=== PATIENT | female | born 1960 | race Caucasian/White ===

== ENCOUNTER 2018-08-31 14:31 | Emergency (ER) | payer OTHER ==
[~2018-08-31] VITALS: Ht 167.6 cm; Wt 72.6 kg
[~2018-08-31 14:31] MED LIST: SIMVASTATIN20 MG PO
--- OUTSIDE RECORDS SUMMARY | 2018-08-31 14:34 | XMS REPORT | Continuity of Care Document ---
Author Author [facility] Interface Address Unknown Phone Unavailable Problems Problem Status Onset Date Classification Date Reported Comments Source Former smoker- quit 2010 - pk per day for 38 yrs Active 08/19/2015 Problem 08/24/2018 [facility] History of cervical cancer- s/p chemo /radiation - 2010 Active 08/19/2015 Problem 08/24/2018 [facility] HTN Active 08/19/2015 Problem 08/24/2018 [facility] Loss of weight- since jul 2014 Active 08/19/2015 Problem 08/24/2018 [facility] Bipolar 2 disorder- psychiatry on - " I go into rages - manic for 2-3 days then come down for 2-3 days then manic " every 2-3 days cycles bipolar Active 08/19/2015 Problem 08/24/2018 [facility] Hot flash, menopausal Active 08/01/2014 Problem 08/24/2018 [facility] Ankle pain, left Active 03/19/2013 Problem 08/24/2018 [facility] Narcotic addiction Active 12/18/2012 Problem 08/24/2018 [facility] Osteoarthritis of lumbar spine Active 08/13/2012 Problem 08/24/2018 [facility] Acute pancreatitis- past etoh abuse quit 2009 - alcohol 20 yrs binge drinking Active 06/02/2011 Problem 08/24/2018 [facility] COPD ;former smoker Active Problem 08/24/2018 [facility] GERD Active Problem 08/24/2018 [facility] Coronary artery disease s/p chemo had [place] Active Problem 08/24/2018 [facility] Degenerative disc disease Active Problem 08/24/2018 [facility] Medications Medication Details Route Status Patient Instructions Ordering Provider Order Date Source Hydroxyzine Hcl 50 Mg Tablet Take 1 tablet by mouth 3 times daily. Oral Active 08/22/2018 [facility] Tramadol 50 Mg Tablet Take 1 tablet by mouth every 8 hours as needed for Pain. Oral Active 08/01/2018 [facility] Dexilant 30 Mg Capsule, Delayed Release Take 1 capsule by mouth daily. Oral Active 07/12/2018 [facility] Clonidine Hcl 0.1 Mg Tablet Catapres 0.1 Mg Tablet Take 1 tablet by mouth daily For blood pressure. Oral Active 07/12/2018 [facility] Tramadol 50 Mg Tablet Take 1 tablet by mouth every 8 hours as needed for Pain. Oral No Longer Active 06/29/2018 [facility] Cyclobenzaprine 10 Mg Tablet Take 1 tablet by mouth 3 times daily as needed for Muscle Spasms. Oral Active 06/19/2018 [facility] Albuterol Sulfate Hfa 90 McG/Actuation Aerosol Inhaler Inhale 2 Puffs by mouth 4 times daily as needed for Wheezing. Inhalation Active 06/12/2018 [facility] Peg 3350-Electrolytes 236 Gram-22.74 Gram-6.74 Gram-5.86 Gram Solution Add lukewarm drinking water to the fill ricky (4 liters) and shake. Drink as directed by your doctor.. Active 06/05/2018 [facility] Methocarbamol 750 Mg Tablet Robaxin-750 750 Mg Tablet Take 1 tablet by mouth 4 times daily as needed for Pain. Oral No Longer Active 06/05/2018 [facility] Hydroxyzine Hcl 50 Mg Tablet Take 1 tablet by mouth 3 times daily. Oral No Longer Active 06/04/2018 [facility] Mirtazapine 15 Mg Tablet Remeron 15 Mg Tablet Take 1 tablet by mouth at bedtime nightly. Oral Active 06/04/2018 [facility] Tramadol 50 Mg Tablet Take 1 tablet by mouth every 8 hours as needed for Pain. Oral No Longer Active 05/29/2018 [facility] Tramadol 50 Mg Tablet Take 1 tablet by mouth every 8 hours as needed for Pain. Oral No Longer Active 05/03/2018 [facility] Tizanidine 4 Mg Tablet Zanaflex 4 Mg Tablet Take 1 tablet by mouth every 6 hours as needed for Muscle Spasms. Oral No Longer Active 04/03/2018 [facility] Tramadol 50 Mg Tablet Take 1 tablet by mouth every 8 hours as needed for Pain. Oral No Longer Active 04/03/2018 [facility] Hydroxyzine Hcl 50 Mg Tablet Take 1 tablet by mouth 3 times daily. Oral No Longer Active 03/12/2018 [facility] Trazodone 100 Mg Tablet Take 1 tablet by mouth at bedtime nightly. Oral No Longer Active 03/12/2018 [facility] lurasidone (LATUDA) 40 mg Tab TABLET Take 1 tablet by mouth daily Take with food. Oral No Longer Active 03/12/2018 [facility] Methocarbamol 750 Mg Tablet Robaxin-750 750 Mg Tablet Take 1 tablet by mouth 4 times daily as needed for up to 30 days for Pain. Oral Inactive 03/07/2018 [facility] Tizanidine 4 Mg Tablet Zanaflex 4 Mg Tablet Take 1 tablet by mouth every 6 hours as needed for Muscle Spasms. Oral No Longer Active 03/07/2018 [facility] Tramadol 50 Mg Tablet Take 1 tablet by mouth every 8 hours as needed for Pain. Oral No Longer Active 03/06/2018 [facility] Methocarbamol 750 Mg Tablet Robaxin-750 750 Mg Tablet Take 1 tablet by mouth 4 times daily as needed for up to 30 days for Pain. Oral Inactive 03/06/2018 [facility] Simvastatin 20 Mg Tablet Take 1 tablet by mouth at bedtime nightly For cholesterol. Oral Active 03/06/2018 [facility] Peg 3350-Electrolytes 236 Gram-22.74 Gram-6.74 Gram-5.86 Gram Solution Add lukewarm drinking water to the fill ricky (4 liters) and shake. Drink as directed by your doctor.. Active 03/06/2018 [facility] Methocarbamol 750 Mg Tablet Robaxin-750 750 Mg Tablet Take 1 tablet by mouth 4 times daily for 30 days. Oral No Longer Active 02/14/2018 [facility] Tramadol 50 Mg Tablet Take 1 tablet by mouth every 8 hours as needed for Pain. Oral No Longer Active 01/31/2018 [facility] Clonidine Hcl 0.1 Mg Tablet Catapres 0.1 Mg Tablet Take 1 tablet by mouth daily For blood pressure. Oral No Longer Active 01/01/2018 [facility] Baclofen 10 Mg Tablet Take 1 tablet by mouth 3 times daily as needed for Pain. Oral No Longer Active 01/01/2018 [facility] Fluticasone 50 McG/Actuation Nasal [place],Suspension Flonase 50 McG/Actuation Nasal [place],Suspension Use 1 [place] in each nostril daily. Active 01/01/2018 [facility] Dexilant 30 Mg Capsule, Delayed Release Take 1 capsule by mouth daily. Oral No Longer Active 01/01/2018 [facility] Tramadol 50 Mg Tablet Take 1 tablet by mouth every 8 hours as needed for Pain. Oral No Longer Active 01/01/2018 [facility] Ordgsjrv-Dwyvnokwr-Xspjfjndy 3.5 Mg/Ml-10,000 Unit/Ml-1 % Ear Solution Instill 3 Drops in right ear 4 times daily for 7 days. No Longer Active 01/01/2018 [facility] Sodium Chloride 0.65 % Nasal [place] Aerosol [place] Saline 0.65 % Nasal [place] Aerosol Use 2 Sprays in each nostril 4 times daily. Active 12/29/2017 [facility] Divalproex Er 500 Mg Tablet,Extended Release 24 Hr Depakote Er 500 Mg Tablet,Extended Release Take 2 tablets by mouth at bedtime nightly. Oral No Longer Active 12/18/2017 [facility] Hydroxyzine Hcl 50 Mg Tablet Take 1 tablet by mouth 3 times daily. Oral No Longer Active 12/18/2017 [facility] Trazodone 100 Mg Tablet Take 1 tablet by mouth at bedtime nightly. Oral No Longer Active 12/18/2017 [facility] Simvastatin 20 Mg Tablet Take 1 tablet by mouth at bedtime nightly For cholesterol. Oral No Longer Active 10/30/2017 [facility] Tramadol 50 Mg Tablet Take 1 tablet by mouth every 8 hours as needed for Pain. Oral No Longer Active 10/30/2017 [facility] Baclofen 10 Mg Tablet Take 1 tablet by mouth 3 times daily as needed for Pain. Oral No Longer Active 10/12/2017 [facility] Divalproex Er 500 Mg Tablet,Extended Release 24 Hr Depakote Er 500 Mg Tablet,Extended Release Take 2 tablets by mouth at bedtime nightly. Oral No Longer Active 10/02/2017 [facility] Hydroxyzine Hcl 50 Mg Tablet Take 1 tablet by mouth 3 times daily. Oral No Longer Active 10/02/2017 [facility] Trazodone 100 Mg Tablet Take 1 tablet by mouth at bedtime nightly. Oral No Longer Active 10/02/2017 [facility] Dexilant 30 Mg Capsule, Delayed Release Take 1 capsule by mouth daily. Oral No Longer Active 09/29/2017 [facility] Dexilant 60 Mg Capsule, Delayed Release Take 1 capsule by mouth daily. Oral No Longer Active 09/08/2017 [facility] Dexilant 60 Mg Capsule, Delayed Release Take 1 capsule by mouth daily. Oral Inactive 09/07/2017 [facility] Fluticasone 50 McG/Actuation Nasal [place],Suspension Flonase 50 McG/Actuation Nasal [place],Suspension Use 1 [place] in each nostril daily. No Longer Active 09/07/2017 [facility] Clonidine Hcl 0.1 Mg Tablet Catapres 0.1 Mg Tablet Take 1 tablet by mouth daily For blood pressure. Oral No Longer Active 09/07/2017 [facility] Tramadol 50 Mg Tablet Take 1 tablet by mouth every 8 hours as needed for Pain. Oral No Longer Active 09/07/2017 [facility] Chlorzoxazone 250 Mg Tablet Take 1 tablet by mouth 3 times daily as needed for Muscle Spasms. Oral No Longer Active 09/07/2017 [facility] Tramadol 50 Mg Tablet Take 1 tablet by mouth every 8 hours as needed for Pain. Oral No Longer Active 08/22/2017 [facility] Divalproex Er 500 Mg Tablet,Extended Release 24 Hr Depakote Er 500 Mg Tablet,Extended Release Take 2 tablets by mouth at bedtime nightly. Oral No Longer Active 07/10/2017 [facility] Hydroxyzine Hcl 50 Mg Tablet Take 1 tablet by mouth 3 times daily. Oral No Longer Active 07/10/2017 [facility] Eszopiclone 2 Mg Tablet Lunesta 2 Mg Tablet Take 1 tablet by mouth at bedtime nightly. Oral No Longer Active 07/10/2017 [facility] Baclofen 10 Mg Tablet Take 1 tablet by mouth 3 times daily as needed for Pain. Oral No Longer Active 07/07/2017 [facility] Loperamide 2 Mg Capsule Anti-Diarrheal (Loperamide) 2 Mg Capsule Take 1 capsule by mouth 4 times daily as needed for Diarrhea. Oral Active 06/14/2017 [facility] Clonidine Hcl 0.1 Mg Tablet Catapres 0.1 Mg Tablet Take 1 tablet by mouth daily For blood pressure. Oral No Longer Active 05/09/2017 [facility] Loratadine 10 Mg Tablet Claritin 10 Mg Tablet Take 1 tablet by mouth daily. Oral No Longer Active 04/13/2017 [facility] Nebulizer And Compressor 1 Device by [facility].(Non-Drug; Combo Route) route 4 times daily. Active 01/26/2017 [facility] Ipratropium [place] 0.02 % Solution For Inhalation Inhale 2.5 mL by mouth 4 times daily. Inhalation Active 01/26/2017 [facility] Albuterol Sulfate 2.5 Mg/3 Ml (0.083 %) Solution For Nebulization Inhale 3 mL by mouth every 4 hours as needed for Wheezing or Shortness of Breath. Inhalation Active 01/26/2017 [facility] Advair Diskus 500 McG-50 McG/Dose Powder For Inhalation Inhale 1 Puff by mouth 2 times daily. Inhalation Active 01/26/2017 [facility] Spiriva With Handihaler 18 McG And Inhalation Capsules Inhale 1 capsule by mouth daily. Inhalation Active 01/26/2017 [facility] Dexilant 60 Mg Capsule, Delayed Release Take 1 capsule by mouth daily. Oral No Longer Active 01/26/2017 [facility] Omeprazole 40 Mg Capsule,Delayed Release Take 1 capsule by mouth daily. Oral No Longer Active 01/26/2017 [facility] Peg 3350-Electrolytes 236 Gram-22.74 Gram-6.74 Gram-5.86 Gram Solution Add lukewarm drinking water to the fill ricky (4 liters) and shake. Drink as directed by your doctor.. No Longer Active 11/21/2016 [facility] Dexilant 30 Mg Capsule, Delayed Release Take 1 capsule by mouth daily. Oral No Longer Active 10/18/2016 [facility] Simvastatin 20 Mg Tablet Take 1 tablet by mouth at bedtime nightly For cholesterol. Oral No Longer Active 10/18/2016 [facility] Albuterol Sulfate Hfa 90 McG/Actuation Aerosol Inhaler Inhale 2 Puffs by mouth 4 times daily as needed for Wheezing. Inhalation No Longer Active 10/18/2016 [facility] Allergies, Adverse Reactions, Alerts Substance Category Reaction Severity Reaction type Status Date Reported Comments Source Penicillins Hives Propensity to adverse reactions to drug Active 01/20/2009 [facility] Penicillin G Propensity to adverse reactions to drug Active 11/13/2010 [facility] Aspirin Other Propensity to adverse reactions to drug Active 01/07/2013 [facility] Ibuprofen Other Propensity to adverse reactions to drug Active 01/07/2013 [facility] Immunizations Immunization Date Given Site Status Last Updated Comments Source Influenza Vaccine, Seasonal, Injectable 09/07/[address] [facility] Influenza Vaccine 08/17/[address] [facility] Pcv-13 Pneumococcal Conjugate 11/03/[address] [facility] Influenza Vaccine 07/09/[address] [facility] Influenza Vaccine 08/14/[address] [facility] Influenza Vaccine 07/16/[address] [facility] Tdap Tetanus, diphtheria, acellular pertussis Vaccine 03/11/[address] [facility] Influenza Vaccine 08/27/[address] [facility] PPV 23 Pneumococcal Polysaccaride 06/02/[address] [facility] Results Order Name Results Value Reference Range Date Interpretation Comments Source MAMMOGRAM BILAT SCREEN DIGITAL <p>IMPRESSION: BENIGN</p><p>There is no mammographic evidence of malignancy. A 1 year </p><p>screening mammogram is recommended.</p><p>This document has been electronically signed.</p><p> </p><p>Susan Mccloud M.D.</p><p>aar/penrad:03/20/2018 13:39:20</p><p> </p><p>Social Services: Jb Lazaro Sr. Organic Chemistry Professor, </p><p>[facility]</p><p>letter sent: Mammography Normal</p><p>Mammogram BI-RADS: 2 Benign G0202 Z85.3</p> IMPRESSION: BENIGN There is no mammographic evidence of malignancy. A 1 year screening mammogram is recommended. This document has been electronically signed. Susan Mccloud M.D. aar/penrad:03/20/2018 13:39:20 Social Services: Jb Lazaro Sr. Organic Chemistry Professor, [facility] letter sent: Mammography Normal Mammogram BI-RADS: 2 Benign G0202 Z85.3 03/20/2018 [facility] MAMMOGRAM BILAT SCREEN DIGITAL <p> </p><p>#[id number] - MAMMOGRAM BILAT SCREEN DIGITAL</p><p>BILATERAL DIGITAL SCREENING MAMMOGRAM WITH CAD: 03/20/2018</p><p>CLINICAL: Screening for malignancy.</p><p> </p><p>Comparison is made to exams dated:04/07/2017 [facility] </p><p>Center, 03/29/2016 [facility], 01/30/2015, </p><p>12/10/2013, and 10/22/2012 [facility].</p><p>There are scattered fibroglandular elements in both breasts that </p><p>could obscure a lesion on mammography.</p><p>Current study was also evaluated with a Computer Aided Detection </p><p>(CAD) system.</p><p>There is a benign intramammary node in the left breast.</p><p>No significant masses, calcifications, or other findings are seen </p><p>in either breast.</p><p>There has been no significant interval change.</p><p> </p> #[id number] - MAMMOGRAM BILAT SCREEN DIGITAL BILATERAL DIGITAL SCREENING MAMMOGRAM WITH CAD: 03/20/2018 CLINICAL: Screening for malignancy. Comparison is made to exams dated:04/07/2017 [facility], 03/29/2016 [facility] [place], 01/30/2015, 12/10/2013, and 10/22/2012 [facility]. There are scattered fibroglandular elements in both breasts that could obscure a lesion on mammography. Current study was also evaluated with a Computer Aided Detection (CAD) system. There is a benign intramammary node in the left breast. No significant masses, calcifications, or other findings are seen in either breast. There has been no significant interval change. 03/20/2018 [facility] MAMMOGRAM BILAT SCREEN DIGITAL <p styleCode="header">Interface, Rad/Mammog In - 03/20/2018 4:02 PM CDT</p><p>
<span>#[id number] - MAMMOGRAM BILAT SCREEN DIGITAL</span>
<span>BILATERAL DIGITAL SCREENING MAMMOGRAM WITH CAD: 03/20/2018</span>
<span>CLINICAL: Screening for malignancy. </span>

<span>Comparison is made to exams dated: 04/07/2017 [facility] </span>
<span>Center, 03/29/2016 [facility] [place], 01/30/2015, </span>
<span>12/10/2013, and 10/22/2012 [facility]. </span>
<span>There are scattered fibroglandular elements in both breasts that </span>
<span>could obscure a lesion on mammography. </span>
<span>Current study was also evaluated with a Computer Aided Detection </span>
<span>(CAD) system. </span>
<span>There is a benign intramammary node in the left breast. </span>
<span>No significant masses, calcifications, or other findings are seen </span>
<span>in either breast. </span>
<span>There has been no significant interval change.</span>

<span>IMPRESSION</span>
<span>IMPRESSION: BENIGN</s tellez>
<span>There is no mammographic evidence of malignancy. A 1 year </span>
<span>screening mammogram is recommended. </span>
<span>This document has been electronically signed.</span>

<span>Susan Mccloud M.D. </span>
<span>aar/penrad:03/20/2018 13:39:20 </span><b r/>
<span>Social Services: Jb Lazaro Sr. Organic Chemistry Professor, </span>
<span>[facility]</span>
<span>letter sent: M ammography Normal </span>
<span>Mammogram BI-RADS: 2 Benign G0202 Z85.3</span></p> Interface, Rad/Mammog In - 03/20/2018 4:02 PM CDT #[id number] - MAMMOGRAM BILAT SCREEN DIGITAL BILATERAL DIGITAL SCREENING MAMMOGRAM WITH CAD: 03/20/2018 CLINICAL: Screening for malignancy. Comparison is made to exams dated: 04/07/2017 [facility], 03/29/2016 [facility], 01/30/2015, 12/10/2013, and 10/22/2012 [facility]. There are scattered fibroglandular elements in both breasts that could obscure a lesion on mammography. Current study was also evaluated with a Computer Aided Detection (CAD) system. There is a benign intramammary node in the left breast. No significant masses, calcifications, or other findings are seen in either breast. There has been no significant interval change. IMPRESSION IMPRESSION: BENIGN There is no mammographic evidence of malignancy. A 1 year screening mammogram is recommended. This document has been electronically signed. Susan Mccloud M.D. aar/penrad:03/20/2018 13:39:20 Social Services: Jb Lazaro Sr. Organic Chemistry Professor, [facility] letter sent: Mammography Normal Mammogram BI-RADS: 2 Benign G0202 Z85.3 03/20/2018 [facility] HEPATITIS PANEL HCV IgG Negative NEG 03/03/2018 [facility] HEPATITIS PANEL HBsAg Negative NEG 03/03/2018 [facility] HEPATITIS PANEL HAV, IgM Negative NEG 03/03/2018 [facility] HEPATITIS PANEL HBcAb, IgM Negative NEG 03/03/2018 [facility] HIV-1/HIV-2 ROUTINE SCREENING HIV-1/HIV-2 Negative NEG 03/03/2018 [facility] ELECTROLYTES Sodium 145 mmol/L 136 - 145 03/02/2018 [facility] ELECTROLYTES Potassium 4.2 mmol/L 3.5 - 5.1 03/02/2018 [facility] ELECTROLYTES Chloride 107 mmol/L 98 - 107 03/02/2018 [facility] ELECTROLYTES CO2 28 mmol/L 21 - 31 03/02/2018 [facility] ELECTROLYTES Anion Gap 10 03/02/2018 [facility] GLUCOSE Glucose 98 mg/dL 70 - 110 03/02/2018 [facility] LIPID PROFILE Cholesterol 261 mg/dL 03/02/2018 REFERENCE RANGE: Desirable: <200 mg/dL Borderline: 200-240 mg/dL High Risk: >240 mg/dL [facility] LIPID PROFILE Triglyceride 190 mg/dL <150 03/02/2018 REFERENCE RANGE: Normal: <150 mg/dL Borderline High: 150-199 mg/dL High: 200-499 mg/dL Very High: >ge=288 mg/dL [facility] LIPID PROFILE HDL 51 mg/dL 03/02/2018 Increased CHD risk: <40 mg/dL Decreased CHD risk: >60 mg/dL [facility] LIPID PROFILE LDL 172 mg/dL 03/02/2018 REFERENCE RANGE: Optimal: <100 mg/dL Near Optimal: 100-129 mg/dL Borderline High: 130-159 mg/dL High: 160-189 mg/dL Very High: >sz=437 mg/dL [facility] LIPID PROFILE Lab Interpretation Abnormal 03/02/2018 [facility] LIVER PROFILE T Protein 6.5 g/dL 6 - 8.3 03/02/2018 [facility] LIVER PROFILE Albumin 4.5 g/dL 3.7 - 5.3 03/02/2018 [facility] LIVER PROFILE T Bilirubin 0.4 mg/dL 0.2 - 1.2 03/02/2018 [facility] LIVER PROFILE Alk Phos 60 U/L 34 - 104 03/02/2018 [facility] LIVER PROFILE AST 11 U/L 13 - 39 03/02/2018 [facility] LIVER PROFILE ALT 10 U/L 7 - 52 03/02/2018 [facility] LIVER PROFILE D Bilirubin 0.1 mg/dL 0 - 0.2 03/02/2018 [facility] LIVER PROFILE Lab Interpretation Abnormal 03/02/2018 [facility] UREA NITROGEN/CREA Urea Nitrogen 12 mg/dL 7 - 25 03/02/2018 [facility] UREA NITROGEN/CREA Creatinine 0.70 mg/dL 0.6 - 1.2 03/02/2018 [facility] UREA NITROGEN/CREA GFR, Estimated >60 mL/min/1.73 m2 03/02/2018 [facility] UREA NITROGEN/CREA GFR, Estim, Afr-Am >60 mL/min/1.73 m2 03/02/2018 [facility] CBC/DIFF WBC 5.2 K/uL 4.5 - 11 03/02/2018 [facility] CBC/DIFF RBC 4.40 4.20 - 5.40 03/02/2018 [facility] CBC/DIFF Hemoglobin 13.4 g/dL 12 - 16 03/02/2018 [facility] CBC/DIFF Hematocrit 39.6 % 37 - 47 03/02/2018 [facility] CBC/DIFF MCV 90 fL 82 - 92 03/02/2018 [facility] CBC/DIFF MCH 30.5 pg 27 - 32 03/02/2018 [facility] CBC/DIFF MCHC 33.8 g/dL 32 - 36 03/02/2018 [facility] CBC/DIFF RDW 42.5 fL 36.4 - 46.3 03/02/2018 [facility] CBC/DIFF Platelet 329 K/uL 150 - 400 03/02/2018 [facility] CBC/DIFF Mean Platelet Volume 9.6 fL 9.4 - 12.4 03/02/2018 [facility] CBC/DIFF Percent NRBC 0.0 03/02/2018 [facility] CBC/DIFF Absolute NRBC 0.00 03/02/2018 [facility] CBC/DIFF Neutrophil 63.7 % 34 - 70 03/02/2018 [facility] CBC/DIFF Lymphocyte 27.9 % 20 - 50 03/02/2018 [facility] CBC/DIFF Monocyte 6.5 % 5 - 12 03/02/2018 [facility] CBC/DIFF Eosinophil 1.1 % 0.7 - 5 03/02/2018 [facility] CBC/DIFF Basophil 0.4 % 0.1 - 1.2 03/02/2018 [facility] CBC/DIFF Pct Immat Gran 0.4 0.0 - 0.5 03/02/2018 [facility] CBC/DIFF Neutrophil, Abs 3.33 K/uL 1.56 - 6.13 03/02/2018 [facility] CBC/DIFF Lymphocyte, Abs 1.46 K/uL 1.18 - 3.74 03/02/2018 [facility] CBC/DIFF Monocyte, Abs 0.34 K/uL 0.24 - 0.36 03/02/2018 [facility] CBC/DIFF Eosinophil, Abs 0.06 K/uL 0.04 - 0.36 03/02/2018 [facility] CBC/DIFF Basophil, Abs 0.02 K/uL 0.01 - 0.08 03/02/2018 [facility] CBC/DIFF Absol Immat Gran 0.02 K/uL 0 - 0.03 03/02/2018 [facility] VALPROIC ACID Valproic Acid 57.7 ug/mL 50 - 100 12/19/2017 Test performed on [id number] using EMIT Immunoassay [facility] CYTOLOGY [facility] Cytology (note) Name ANA NELSON Date of 1960 Hospital Number [id number] [facility] [employer] Oncology CYTOPATHOLOGY Collected:11/06/2017 00:00 Received: 11/07/2017 11:02 FINAL DIAGNOSIS Cervicovaginal (liquid-based preparation): Satisfactory for evaluation Negative for intraepithelial lesion or malignancy Infection Shift in [place] suggestive of bacterial vaginosis Electronically Signed Out By SILVA Singh (ASCP) Clinical History Date of Last Menstrual Period: 2010 Menstrual History: Pregnancies: A0 Cancer History: Previous Cancer: Cervical IB2 Specimen Received: One ThinPrep Vial Educational Note: The pap smear/test is a screening test for cervical cancer.As with screening procedures, both false negative and false positive results may occur.Hence, the results should be interpreted in the context of patient's history and current clinical information. The slide has been analyzed by the automated ThinPrep Imaging System, [employer], [place], [place]. 11/08/2017 [facility] HPV HIGH-RISK HPV High Risk Negative NEG 11/07/2017 The APTIMA HPV Assay is an in vitro nucleic acid amplification test for the qualitative detection of E6/E7 viral messenger RNA (mRNA) from 14 high-risk types of human papillomavirus (HPV) in cervical specimens. The high-risk HPV types detected by the assay include: 16,18,31,33,35,39,45,51,52,56,58,59,66, and 68. [facility] HPV HIGH-RISK CoPath Spec Number [id number] 11/07/2017 [facility] URINE DRUG SCREEN Amphetamine Negative NEG 09/08/2017 Calibrated Standard: D-Methamphetamine Positive if urine level >qf=4694 ng/mL [facility] URINE DRUG SCREEN Barbiturate Negative NEG 09/08/2017 Calibrated Standard: Secobarbital Positive if urine level is >us=798 ng/mL [facility] URINE DRUG SCREEN Benzodiazepine Negative NEG 09/08/2017 Calibrated Standard: Lormethazepam Positive if urine level is >jp=557 ng/mL [facility] URINE DRUG SCREEN Cannabinoid Positive NEG 09/08/2017 Calibrated Standard: 11 nor-delta(9)-THC carboxylic a Positive if urine level >or=50 [facility] URINE DRUG SCREEN Cocaine Negative NEG 09/08/2017 Calibrated Standard: Benzoylecgonine Positive if urine level >oi=668 [facility] URINE DRUG SCREEN Opiate, Ur Negative NEG 09/08/2017 Calibrated Standard: Morphine Positive if urine level >jr=656 [facility] URINE DRUG SCREEN PCP Negative NEG 09/08/2017 Calibrated Standard: Phencyclidine Positive if urine level >or=25 Urine Toxicology Screen results are to be used only for Medical purposes. [facility] URINE DRUG SCREEN Lab Interpretation Abnormal 09/08/2017 [facility] Vital Signs Vital Sign Value Date Comments Source Systolic (mm Hg) 116 06/05/2018 [facility] Diastolic (mm Hg) 69 06/05/2018 [facility] Heart Rate 65 06/05/2018 [facility] Temperature Oral (F) 37 Stephanie 06/05/2018 [facility] Respitory Rate 18 06/05/2018 [facility] Height 167.6 cm 06/05/2018 [facility] Weight 75.841 06/05/2018 [facility] BMI Calculated 26.99 06/05/2018 [facility] Encounters Location Location Details Encounter Type Encounter Number Reason For Visit Attending Provider ADM Date DC Date Status Source Pharmacy [facility] Visit [id number] 08/25/2017 [facility] Visit [id number] 08/30/2017 [facility] [id number] 08/30/2017 [facility] Refill [id number] Gastroesophageal reflux disease with esophagitis Onelia Miller DO 09/07/2017 [facility] Visit [id number] 09/07/2017 [facility] Office Visit [id number] Needs flu shot Essential hypertension, benign Allergic rhinitis, unspecified chronicity, unspecified seasonality, unspecified trigger Gastroesophageal reflux disease with esophagitis Foraminal stenosis of lumbar region Foraminal stenosis of cervical region Cervical stenosis of spinal canal Chronic midline low back pain with sciatica, sciatica laterality unspecified Ziyad Burns MD 09/07/2017 09/07/2017 [facility] Visit [id number] 09/08/2017 [facility] Visit [id number] 09/20/2017 [facility] Visit [id number] 09/22/2017 [facility] Visit [id number] 09/27/2017 [facility] Ref[facility] [id number] Abdominal pain, epigastric Ziyad Burns MD 09/28/2017 [facility] [id number] 09/28/2017 [facility] Visit [id number] 09/29/2017 [facility] Visit [id number] 10/02/2017 [facility] Visit [id number] Mood disorder Bipolar 2 disorder Oliver Nascimento MD 10/02/2017 10/02/2017 [facility] [id number] 10/03/2017 [facility] Visit [id number] 10/06/2017 [facility] [id number] 10/06/2017 [facility] [id number] 10/06/2017 [facility] Orders Only [id number] Osteoarthritis of lumbar spine, unspecified spinal osteoarthritis complication status Ziyad Burns MD 10/12/2017 [facility] Visit [id number] 10/13/2017 [facility] [id number] 10/16/2017 [facility] [id number] 10/23/2017 [facility] Visit [id number] 10/30/2017 [facility] Visit [id number] Cervical stenosis of spinal canal Foraminal stenosis of cervical region Foraminal stenosis of lumbar region Benign tumor of nares Hyperlipidemia, unspecified hyperlipidemia type Ziyad Burns MD 10/30/2017 10/30/2017 [facility] [id number] 11/06/2017 [facility] [employer] [facility] Office Visit [id number] Malignant neoplasm of cervix, unspecified site History of cervical cancer Toney Liu MD 11/06/2017 11/06/2017 [facility] [id number] 11/08/2017 [facility] Visit [id number] 11/10/2017 [facility] Behavioral Health[facility] Visit [id number] Mood disorder in conditions classified elsewhere Oliver Nascimento MD 11/16/2017 11/16/2017 [facility] Visit [id number] 11/22/2017 [facility] Visit [id number] 11/22/2017 [facility] Visit [id number] 11/27/2017 [facility]acy Visit [id number] 12/04/2017 [facility] [id number] 12/04/2017 [facility] Visit [id number] 12/08/2017 [facility] Visit [id number] Mood disorder Bipolar 2 disorder Oliver Nascimento MD 12/18/2017 12/18/2017 [facility] [id number] 12/19/2017 [facility] Office Visit [id number] Sore in nostril Salome Orona MD 12/29/2017 12/29/2017 [facility] [id number] 01/01/2018 [facility] Visit [id number] Other emphysema Gastroesophageal reflux disease without esophagitis Essential hypertension Essential hypertension, benign Osteoarthritis of lumbar spine, unspecified spinal osteoarthritis complication status Abdominal pain, epigastric Foraminal stenosis of lumbar region Allergic rhinitis, unspecified seasonality, unspecified trigger Acute otitis externa of right ear, unspecified type Hyperlipidemia, unspecified hyperlipidemia type Bipolar affective disorder, currently depressed, mild Ziyad Burns MD 01/01/2018 01/01/2018 [facility] [id number] 01/02/2018 [facility] Visit [id number] 01/12/2018 [facility]acy Visit [id number] 01/12/2018 [facility] [id number] 01/24/2018 [facility] Visit [id number] 01/26/2018 [facility]acy Visit [id number] 01/29/2018 [facility] [id number] 01/29/2018 [facility] Refill [id number] Foraminal stenosis of lumbar region Ziyad Burns MD 01/29/2018 [facility] Visit [id number] 02/01/2018 [facility] Visit [id number] 02/13/2018 [facility] [id number] 02/14/2018 [facility] Office Visit [id number] Chronic neck pain Bola Soler MD 02/14/2018 02/14/2018 [facility] [id number] 02/16/2018 [facility]acy Visit [id number] 02/28/2018 [facility] [id number] 02/28/2018 [facility] Refill [id number] Foraminal stenosis of lumbar region Ziyad Burns MD 02/28/2018 [facility] [id number] 03/02/2018 [facility] Refill [id number] Chronic neck pain Ziyad Burns MD 03/06/2018 [facility] [id number] 03/06/2018 [facility] Visit [id number] Chronic neck pain Essential hypertension Other emphysema Gastroesophageal reflux disease without esophagitis Allergic rhinitis, unspecified seasonality, unspecified trigger Hyperlipidemia, unspecified hyperlipidemia type Preventative health care Polyp of colon, unspecified part of colon, unspecified type Ziyad Burns MD 03/06/2018 03/06/2018 [facility] [id number] 03/07/2018 [facility] Orders Only [id number] Chronic neck pain Ziyad Burns MD 03/07/2018 [facility]acy Visit [id number] 03/08/2018 [facility] [id number] 03/08/2018 [facility] [id number] 03/12/2018 [facility] [id number] 03/12/2018 [facility] Visit [id number] Mood disorder Bipolar 2 disorder Oliver Nascimento MD 03/12/2018 03/12/2018 [facility] [id number] 03/13/2018 [facility] [id number] 03/14/2018 [facility] [id number] 03/14/2018 [facility] [id number] 03/15/2018 [facility] [id number] 03/16/2018 [facility] Ancillary Procedure [id number] Ziyad Burns MD 03/20/2018 03/20/2018 [facility] [id number] 04/03/2018 [facility] Refill [id number] Chronic neck pain Foraminal stenosis of lumbar region Ziyad Burns MD 04/03/2018 [facility] [id number] 04/06/2018 [facility]acy Visit [id number] 04/10/2018 [facility] [id number] 04/10/2018 [facility] [id number] 04/17/2018 [facility] Refill [id number] Foraminal stenosis of lumbar region Ziyad Burns MD 05/03/2018 [facility] [id number] 05/04/2018 [facility] [id number] 05/07/2018 [facility] [id number] 05/08/2018 [facility] [id number] 05/14/2018 [facility] [id number] 05/17/2018 [facility] Refill [id number] Foraminal stenosis of lumbar region Ziyad Burns MD 05/25/2018 [facility] [id number] 05/25/2018 [facility] Visit [id number] 05/29/2018 [facility] Visit [id number] 05/30/2018 [facility] [id number] 06/01/2018 [facility] [id number] 06/04/2018 [facility] Visit [id number] Mood disorder TRAN (generalized anxiety disorder) Current severe episode of major depressive disorder without psychotic features without prior episode Routine lab draw Oliver Nascimento MD 06/04/2018 06/04/2018 [facility] [id number] 06/05/2018 [facility] Office Visit [id number] Dysphagia, unspecified type Polyp of colon, unspecified part of colon, unspecified type Other emphysema Gastroesophageal reflux disease without esophagitis Coronary artery disease due to lipid rich plaque Neck pain Chronic midline low back pain without sciatica Ziyad Burns MD 06/05/2018 06/05/2018 [facility] Refill [id number] Other emphysema Ziyad Burns MD 06/11/2018 [facility] [id number] 06/11/2018 [facility] [id number] 06/12/2018 [facility] [id number] 06/15/2018 [facility] Telephone [id number] Ama Poon RN 06/18/2018 [facility] [id number] 06/19/2018 [facility] Orders Only [id number] Neck pain Chronic midline low back pain without sciatica Ziyad Burns MD 06/19/2018 [facility] Refill [id number] Foraminal stenosis of lumbar region Ziyad Burns MD 06/28/2018 [facility] [id number] 06/29/2018 [facility] [id number] 07/03/2018 [facility] Refill [id number] Abdominal pain, epigastric Essential hypertension, benign Ziyad Burns MD 07/09/2018 [facility] [id number] 07/12/2018 [facility] [id number] 07/20/2018 [facility] Visit [id number] Mood disorder in conditions classified elsewhere Grief Jenni Lopez 07/20/2018 07/20/2018 [facility] Visit [id number] 08/01/2018 [facility] Refill [id number] Foraminal stenosis of lumbar region Ziyad Burns MD 08/01/2018 [facility]acy Visit [id number] 08/02/2018 [facility] [id number] 08/02/2018 [facility] Visit [id number] 08/03/2018 [facility] Visit [id number] 08/21/2018 [facility] [id number] Mood disorder Oliver Nascimento MD 08/22/2018 [facility] Refill [id number] Mood disorder Porfirio Gomez MD 08/22/2018 [facility] [id number] 08/22/2018 [facility] Ref[facility] [id number] Mood disorder Bipolar 2 disorder Oliver Nascimento MD 08/24/2018 [facility] [id number] 08/24/2018 [facility] Procedures Procedure Code Date Perfomer Comments Source MAMMOGRAM BILAT SCREEN DIGITAL G0202 03/20/2018 [facility] ELECTROLYTES 48329 03/02/2018 [facility] CBC/DIFF 77788 03/02/2018 [facility] GLUCOSE 83915 03/02/2018 [facility] LIPID PROFILE 44923 03/02/2018 [facility] UREA NITROGEN/CREA 58768 03/02/2018 [facility] LIVER PROFILE [id number] 03/02/2018 [facility] HIV-1/HIV-2 ROUTINE SCREENING 59008 03/02/2018 [facility] HEPATITIS PANEL 22779 03/02/2018 [facility] VALPROIC ACID 23324 12/18/2017 [facility] HPV HIGH-RISK 49591 11/06/2017 [facility] CYTOLOGY 81637 11/06/2017 [facility] URINE DRUG SCREEN 47117 09/07/[address] [facility]
--- OUTSIDE RECORDS SUMMARY | 2018-08-31 14:35 | XMS REPORT ---
Author [facility] Address Unknown Phone Unavailable Care Team Providers Care Online Advertising Manager Name Role Phone Unavailable Unavailable Problems This patient has no known problems. Allergies, Adverse Reactions, Alerts This patient has no known allergies or adverse reactions. Medications This patient has no known medications. Encounters Start Date/Time End Date/Time Encounter Type Admission Type Attending [facility] Facility Care Department Encounter ID 2018-11-19 00:00:00 2018-11-19 00:00:00 Outpatient [facility] [id number] 2018-10-10 00:00:00 2018-10-10 00:00:00 Outpatient [facility] [id number] 2018-09-03 00:00:00 2018-09-03 00:00:00 Outpatient [facility] [id number] 2018-08-27 13:11:15 2018-08-27 13:11:15 Outpatient [facility] [id number] 2018-08-24 15:25:36 2018-08-24 15:25:36 Outpatient [facility] [id number] 2018-08-22 00:00:00 2018-08-22 00:00:00 Outpatient [facility] [id number] 2018-08-22 00:00:00 2018-08-22 00:00:00 Outpatient [facility] [id number] 2018-08-01 00:00:00 2018-08-01 00:00:00 Outpatient [facility] [id number] 2018-07-20 15:10:04 2018-07-20 15:10:04 Outpatient [facility] [id number] 2018-07-09 00:00:00 2018-07-09 00:00:00 Outpatient [facility] [id number] 2018-06-28 00:00:00 2018-06-28 00:00:00 Outpatient [facility] [id number] 2018-06-19 00:00:00 2018-06-19 00:00:00 Outpatient [facility] [id number] 2018-06-18 00:00:00 2018-06-18 00:00:00 Outpatient [facility] [id number] 2018-06-11 00:00:00 2018-06-11 00:00:00 Outpatient [facility] [id number] 2018-06-05 14:47:31 2018-06-05 14:47:31 Outpatient [facility] [id number] 2018-06-04 13:58:07 2018-06-04 13:58:07 Outpatient [facility] [id number] 2018-06-04 12:52:09 2018-06-04 12:52:09 Outpatient [facility] [id number] 2018-05-07 00:00:00 2018-05-07 00:00:00 Outpatient [facility] [id number] 2018-05-03 00:00:00 2018-05-03 00:00:00 Outpatient [facility] [id number] 2018-04-27 00:00:00 2018-04-27 00:00:00 Outpatient [facility] [id number] 2018-04-03 00:00:00 2018-04-03 00:00:00 Outpatient [facility] [id number] 2018-03-20 12:52:27 2018-03-20 12:52:27 Outpatient [facility] [id number] 2018-03-12 12:54:56 2018-03-12 12:54:56 Outpatient [facility] [id number] 2018-03-06 15:04:22 2018-03-06 15:04:22 Outpatient [facility] [id number] 2018-03-02 08:21:45 2018-03-02 08:21:45 Outpatient [facility] [id number] 2018-02-28 00:00:00 2018-02-28 00:00:00 Outpatient [facility] [id number] 2018-02-28 00:00:00 2018-02-28 00:00:00 Outpatient [facility] [id number] 2018-02-14 10:11:20 2018-02-14 10:11:20 Outpatient [facility] [id number] 2018-01-29 00:00:00 2018-01-29 00:00:00 Outpatient [facility] [id number] 2018-01-01 14:43:20 2018-01-01 14:43:20 Outpatient [facility] [id number] 2017-12-29 08:49:33 2017-12-29 08:49:33 Outpatient [facility] [id number] 2017-12-28 00:00:00 2017-12-28 00:00:00 Outpatient [facility] [id number] 2017-12-25 00:00:00 2017-12-25 00:00:00 Outpatient [facility] [id number] 2017-12-18 14:03:58 2017-12-18 14:03:58 Outpatient [facility] [id number] 2017-12-18 13:14:23 2017-12-18 13:14:23 Outpatient [facility] [id number] 2017-12-07 00:00:00 2017-12-07 00:00:00 Outpatient [facility] [id number] 2017-11-16 13:21:15 2017-11-16 13:21:15 Outpatient [facility] [id number] 2017-11-06 12:33:34 2017-11-06 12:33:34 Outpatient [facility] [id number] 2017-10-30 09:11:53 2017-10-30 09:11:53 Outpatient [facility] [id number] 2017-10-02 13:24:33 2017-10-02 13:24:33 Outpatient [facility] [id number] 2017-09-07 14:05:22 2017-09-07 14:05:22 Outpatient [facility] [id number] 2017-08-14 00:00:00 2017-08-14 00:00:00 Outpatient [facility] [id number] 2017-08-11 00:00:00 2017-08-11 00:00:00 Outpatient [facility] [id number] 2017-08-10 00:00:00 2017-08-10 00:00:00 Outpatient [facility] [id number] 2017-07-24 13:37:35 2017-07-24 13:37:35 Outpatient [facility] [id number] 2017-07-24 13:37:02 2017-07-24 13:37:02 Outpatient [facility] [id number] 2017-07-10 14:27:15 2017-07-10 14:27:15 Outpatient [facility] [id number] 2017-07-10 00:00:00 2017-07-10 00:00:00 Outpatient [facility] [id number] 2017-06-21 10:28:04 2017-06-21 10:28:04 Outpatient [facility] [id number] 2017-06-20 00:00:00 2017-06-20 00:00:00 Outpatient [facility] [id number] 2017-06-14 08:17:57 2017-06-14 08:17:57 Outpatient [facility] [id number] 2017-06-13 14:26:39 2017-06-13 14:26:39 Outpatient [facility] [id number] 2017-05-22 00:00:00 2017-05-22 00:00:00 Outpatient [facility] [id number] 2017-05-19 00:00:00 2017-05-19 00:00:00 Outpatient [facility] [id number] 2017-05-19 00:00:00 2017-05-19 00:00:00 Outpatient [facility] [id number] 2017-05-16 08:32:19 2017-05-16 08:32:19 Outpatient [facility] [id number] 2017-05-01 14:42:19 2017-05-01 14:42:19 Outpatient [facility] [id number] 2017-04-28 00:00:00 2017-04-28 00:00:00 Outpatient [facility] [id number] 2017-04-24 00:00:00 2017-04-24 00:00:00 Outpatient [facility] [id number] 2017-04-20 09:38:22 2017-04-20 09:38:22 Outpatient [facility] [id number] 2017-04-14 00:00:00 2017-04-14 00:00:00 Outpatient [facility] [id number] 2017-04-13 09:20:53 2017-04-13 09:20:53 Outpatient [facility] [id number] 2017-04-13 00:00:00 2017-04-13 00:00:00 Outpatient [facility] [id number] 2017-04-07 09:45:15 2017-04-07 09:45:15 Outpatient [facility] [id number] 2017-03-08 11:08:01 2017-03-08 11:08:01 Outpatient [facility] [id number] 2017-03-06 00:00:00 2017-03-06 00:00:00 Outpatient [facility] [id number] 2017-03-02 13:41:04 2017-03-02 13:41:04 Outpatient [facility] [id number] 2017-02-27 15:45:06 2017-02-27 15:45:06 Outpatient [facility] [id number] 2017-02-15 00:00:00 2017-02-15 00:00:00 Outpatient [facility] [id number] 2017-02-13 09:21:07 2017-02-13 09:21:07 Outpatient [facility] [id number] 2017-02-06 14:30:39 2017-02-06 14:30:39 Outpatient [facility] [id number]
--- OUTSIDE RECORDS SUMMARY | 2018-08-31 14:35 | XMS REPORT | Clinical Summary ---
Author Author [facility] Organization [facility] Address Unknown Phone Unavailable Care Team Providers Care Pig Handler Name Role Phone Ziyad Burns MD PCP Allergies Active Allergy Reactions Severity Noted Date Comments Aspirin Other 01/07/2013 bleeding Ibuprofen Other 01/07/2013 bleeding Penicillin G 11/13/2010 Penicillins Hives 01/20/2009 Current Medications Prescription Sig. Disp. Refills Start End Date Status Date Nebulizer & Compressor 1 Device by 1 Device 0 01/27/20 Active For Neb DeviIndications: Misc.(Non-Drug; Combo 17 Chronic obstructive Route) route 4 times pulmonary disease with daily. acute exacerbation ipratropium (ATROVENT) Inhale 2.5 mL by mouth 4 250 mL 3 01/27/20 Active 0.02 % nebulizer times daily. 17 solutionIndications: Chronic obstructive pulmonary disease with acute exacerbation albuterol (PROVENTIL) 2.5 Inhale 3 mL by mouth 300 mL 3 01/27/20 Active mg /3 mL (0.083 %) every 4 hours as needed 17 nebulizer for Wheezing or Shortness solutionIndications: of Breath. Chronic obstructive pulmonary disease with acute exacerbation fluticasone-salmeterol Inhale 1 Puff by mouth 2 180 Each 3 01/27/20 Active (ADVAIR DISKUS) 500-50 times daily. 17 mcg/dose diskus inhalerIndications: Chronic obstructive pulmonary disease with acute exacerbation tiotropium (SPIRIVA WITH Inhale 1 capsule by mouth 90 capsule 3 01/27/20 Active HANDIHALER) 18 mcg daily. 17 inhalation capsuleIndications: Chronic obstructive pulmonary disease with acute exacerbation loperamide (SOBA Take 1 capsule by mouth 4 15 tablet 0 06/14/20 Active ANTI-DIARRHEAL) 2 mg times daily as needed for 17 capsule Diarrhea. sodium chloride (AYR) Use 2 Sprays in each 15 mL 2 12/30/19 Active 0.65 % nasal nostril 4 times daily. 18 sprayIndications: Sore in nostril fluticasone (FLONASE) 50 Use 1 [place] in each 16 g 2 01/02/20 Active mcg/actuation nasal nostril daily. 18 sprayIndications: Allergic rhinitis, unspecified seasonality, unspecified trigger simvastatin (ZOCOR) 20 mg Take 1 tablet by mouth at 90 tablet 1 03/06/20 Active tabletIndications: bedtime nightly For 18 Hyperlipidemia, cholesterol. unspecified hyperlipidemia type polyethylene glycol Add lukewarm drinking 4000 mL 0 03/06/20 Active (GOLYTELY) 236-22.74-6.74 water to the fill ricky (4 18 -5.86 gram oral liters) and shake. Drink solutionIndications: as directed by your Polyp of colon, doctor.. unspecified part of colon, unspecified type mirtazapine (REMERON) 15 Take 1 tablet by mouth at 30 tablet 2 06/04/20 Active mg tabletIndications: bedtime nightly. 18 Mood disorder, TRAN (generalized anxiety disorder) polyethylene glycol Add lukewarm drinking 4000 mL 0 06/05/20 Active (GOLYTELY) 236-22.74-6.74 water to the fill ricky (4 18 -5.86 gram oral liters) and shake. Drink solutionIndications: as directed by your Polyp of colon, doctor.. unspecified part of colon, unspecified type albuterol 90 Inhale 2 Puffs by mouth 4 20.1 g 2 06/12/20 Active mcg/actuation times daily as needed for 18 inhalerIndications: Other Wheezing. emphysema cyclobenzaprine Take 1 tablet by mouth 3 60 tablet 1 06/19/20 Active (FLEXERIL) 10 mg times daily as needed for 18 tabletIndications: Neck Muscle Spasms. pain, Chronic midline low back pain without sciatica dexlansoprazole Take 1 capsule by mouth 90 capsule 1 07/12/20 Active (DEXILANT) 30 mg delayed daily. 18 release capsuleIndications: Abdominal pain, epigastric cloNIDine HCl (CATAPRES) Take 1 tablet by mouth 90 tablet 1 07/12/20 Active 0.1 mg tabletIndications: daily For blood pressure. 18 Essential hypertension, benign traMADol (ULTRAM) 50 mg Take 1 tablet by mouth 30 tablet 0 08/01/20 Active tabletIndications: every 8 hours as needed 18 Foraminal stenosis of for Pain. lumbar region hydrOXYzine (ATARAX) 50 Take 1 tablet by mouth 3 90 tablet 2 08/22/20 Active mg tabletIndications: times daily. 18 Mood disorder dexlansoprazole Take 1 capsule by mouth 90 capsule 1 10/18/19 09/07/20 Discontin (DEXILANT) 30 mg delayed daily. 17 17 ued release capsuleIndications: Abdominal pain, epigastric simvastatin (ZOCOR) 20 mg Take 1 tablet by mouth at 90 tablet 1 10/18/19 10/30/19 Discontin tabletIndications: bedtime nightly For 17 18 ued Hyperlipidemia, cholesterol. unspecified hyperlipidemia type albuterol (VENTOLIN Inhale 2 Puffs by mouth 4 20.1 g 2 10/18/19 06/11/20 Discontin HFA,PROVENTIL HFA,PROAIR times daily as needed for 17 18 ued HFA) 90 mcg/actuation Wheezing. inhalerIndications: Other emphysema polyethylene glycol Add lukewarm drinking 4000 mL 0 11/21/19 10/30/19 Discontin (GOLYTELY) 236-22.74-6.74 water to the fill ricky (4 17 18 ued -5.86 gram oral liters) and shake. Drink solutionIndications: Heme as directed by your positive stool doctor.. dexlansoprazole Take 1 capsule by mouth 90 capsule 3 01/27/20 09/07/20 Discontin (DEXILANT) 60 mg delayed daily. 17 17 ued release capsuleIndications: Gastroesophageal reflux disease with esophagitis Omeprazole 40 mg Take 1 capsule by mouth 90 capsule 3 01/27/20 09/07/20 Discontin capsuleIndications: daily. 17 17 ued Gastroesophageal reflux disease with esophagitis loratadine (CLARITIN) 10 Take 1 tablet by mouth 30 tablet 3 04/13/20 03/06/20 Discontin mg tabletIndications: daily. 17 18 ued Seasonal allergic rhinitis due to pollen, unspecified chronicity cloNIDine HCl (CATAPRES) Take 1 tablet by mouth 90 tablet 1 05/09/20 09/07/20 Discontin 0.1 mg tabletIndications: daily For blood pressure. 17 17 ued Essential hypertension with goal blood pressure less than 140/90 baclofen (LIORESAL) 10 mg Take 1 tablet by mouth 3 60 tablet 2 07/07/20 09/07/20 Discontin tabletIndications: times daily as needed for 17 17 ued Hyperlipidemia, Pain. unspecified hyperlipidemia type divalproex (DEPAKOTE ER) Take 2 tablets by mouth 180 tablet 1 07/10/20 10/02/19 Discontin 500 mg extended release at bedtime nightly. 17 18 ued tabletIndications: Mood disorder hydrOXYzine (ATARAX) 50 Take 1 tablet by mouth 3 90 tablet 2 07/10/20 10/02/19 Discontin mg tabletIndications: times daily. 17 18 ued Mood disorder eszopiclone (LUNESTA) 2 Take 1 tablet by mouth at 30 Each 2 07/10/20 10/02/19 Discontin mg tablet bedtime nightly. 17 18 ued traMADol (ULTRAM) 50 mg Take 1 tablet by mouth 90 tablet 0 08/22/20 09/07/20 Discontin tabletIndications: every 8 hours as needed 17 17 ued Chronic midline low back for Pain. pain without sciatica dexlansoprazole Take 1 capsule by mouth 90 capsule 1 09/07/20 09/07/20 Discontin (DEXILANT) 60 mg delayed daily. 17 17 ued release capsuleIndications: Gastroesophageal reflux disease with esophagitis fluticasone (FLONASE) 50 Use 1 [place] in each 16 g 2 09/07/20 01/02/20 Discontin mcg/actuation nasal nostril daily. 17 18 ued sprayIndications: Allergic rhinitis, unspecified chronicity, unspecified seasonality, unspecified trigger cloNIDine HCl (CATAPRES) Take 1 tablet by mouth 90 tablet 1 09/07/20 01/02/20 Discontin 0.1 mg tabletIndications: daily For blood pressure. 17 18 ued Essential hypertension, benign traMADol (ULTRAM) 50 mg Take 1 tablet by mouth 90 tablet 0 09/07/20 10/30/19 Discontin tabletIndications: every 8 hours as needed 17 18 ued Foraminal stenosis of for Pain. lumbar region chlorzoxazone 250 mg Take 1 tablet by mouth 3 60 tablet 0 09/07/20 10/12/19 Discontin tabletIndications: times daily as needed for 17 18 ued Chronic midline low back Muscle Spasms. pain with sciatica, sciatica laterality unspecified dexlansoprazole Take 1 capsule by mouth 90 capsule 1 09/08/20 10/30/19 Discontin (DEXILANT) 60 mg delayed daily. 17 18 ued release capsuleIndications: Gastroesophageal reflux disease with esophagitis dexlansoprazole Take 1 capsule by mouth 90 capsule 1 09/29/19 01/02/20 Discontin (DEXILANT) 30 mg delayed daily. 18 18 ued release capsuleIndications: Abdominal pain, epigastric divalproex (DEPAKOTE ER) Take 2 tablets by mouth 180 tablet 1 10/02/19 12/19/19 Discontin 500 mg extended release at bedtime nightly. 18 18 ued tabletIndications: Mood disorder, Bipolar 2 disorder hydrOXYzine (ATARAX) 50 Take 1 tablet by mouth 3 90 tablet 2 10/02/19 12/19/19 Discontin mg tabletIndications: times daily. 18 18 ued Mood disorder, Bipolar 2 disorder traZODone (DESYREL) 100 Take 1 tablet by mouth at 90 tablet 1 10/02/19 12/19/19 Discontin mg tabletIndications: bedtime nightly. 18 18 ued Mood disorder, Bipolar 2 disorder baclofen (LIORESAL) 10 mg Take 1 tablet by mouth 3 60 tablet 2 10/12/19 01/02/20 Discontin tabletIndications: times daily as needed for 18 18 ued Osteoarthritis of lumbar Pain. spine, unspecified spinal osteoarthritis complication status simvastatin (ZOCOR) 20 mg Take 1 tablet by mouth at 90 tablet 1 10/30/19 03/06/20 Discontin tabletIndications: bedtime nightly For 18 18 ued Hyperlipidemia, cholesterol. unspecified hyperlipidemia type traMADol (ULTRAM) 50 mg Take 1 tablet by mouth 90 tablet 1 10/30/19 01/02/20 Discontin tabletIndications: every 8 hours as needed 18 18 ued Foraminal stenosis of for Pain. lumbar region divalproex (DEPAKOTE ER) Take 2 tablets by mouth 180 tablet 1 12/19/19 03/12/20 Discontin 500 mg extended release at bedtime nightly. 18 18 ued tabletIndications: Mood disorder, Bipolar 2 disorder hydrOXYzine (ATARAX) 50 Take 1 tablet by mouth 3 90 tablet 2 12/19/19 03/12/20 Discontin mg tabletIndications: times daily. 18 18 ued Mood disorder, Bipolar 2 disorder traZODone (DESYREL) 100 Take 1 tablet by mouth at 90 tablet 1 12/19/19 03/12/20 Discontin mg tabletIndications: bedtime nightly. 18 18 ued Mood disorder, Bipolar 2 disorder cloNIDine HCl (CATAPRES) Take 1 tablet by mouth 90 tablet 1 01/02/20 07/09/20 Discontin 0.1 mg tabletIndications: daily For blood pressure. 18 18 ued Essential hypertension, benign baclofen (LIORESAL) 10 mg Take 1 tablet by mouth 3 60 tablet 2 01/02/20 03/06/20 Discontin tabletIndications: times daily as needed for 18 18 ued Osteoarthritis of lumbar Pain. spine, unspecified spinal osteoarthritis complication status dexlansoprazole Take 1 capsule by mouth 90 capsule 1 01/02/20 07/09/20 Discontin (DEXILANT) 30 mg delayed daily. 18 18 ued release capsuleIndications: Abdominal pain, epigastric traMADol (ULTRAM) 50 mg Take 1 tablet by mouth 90 tablet 0 01/02/20 01/30/20 Discontin tabletIndications: every 8 hours as needed 18 18 ued Foraminal stenosis of for Pain. lumbar region rfwputyo-zczimljol-nhaviu Instill 3 Drops in right 10 mL 0 01/02/20 01/09/20 ortisone (CORTISPORIN) ear 4 times daily for 7 18 18 3.5-10,000-1 days. mg/mL-unit/mL-% otic solutionIndications: Acute otitis externa of right ear, unspecified type traMADol (ULTRAM) 50 mg Take 1 tablet by mouth 90 tablet 0 02/01/20 02/29/20 Discontin tabletIndications: every 8 hours as needed 18 18 ued Foraminal stenosis of for Pain. lumbar region methocarbamol Take 1 tablet by mouth 4 120 tablet 0 02/15/20 03/06/20 Discontin (ROBAXIN-750) 750 mg times daily for 30 days. 18 18 ued tabletIndications: Chronic neck pain traMADol (ULTRAM) 50 mg Take 1 tablet by mouth 90 tablet 0 03/06/20 04/03/20 Discontin tabletIndications: every 8 hours as needed 18 18 ued Foraminal stenosis of for Pain. lumbar region methocarbamol Take 1 tablet by mouth 4 120 tablet 1 03/06/20 03/06/20 Discontin (ROBAXIN-750) 750 mg times daily as needed for 18 18 ued tabletIndications: up to 30 days for Pain. Chronic neck pain methocarbamol Take 1 tablet by mouth 4 120 tablet 1 03/07/20 03/07/20 Discontin (ROBAXIN-750) 750 mg times daily as needed for 18 18 ued tabletIndications: up to 30 days for Pain. Chronic neck pain tiZANidine (ZANAFLEX) 4 Take 1 tablet by mouth 60 tablet 0 03/07/20 04/03/20 Discontin mg tabletIndications: every 6 hours as needed 18 18 ued Chronic neck pain for Muscle Spasms. hydrOXYzine (ATARAX) 50 Take 1 tablet by mouth 3 90 tablet 2 03/12/20 06/04/20 Discontin mg tabletIndications: times daily. 18 18 ued Mood disorder, Bipolar 2 disorder traZODone (DESYREL) 100 Take 1 tablet by mouth at 90 tablet 1 03/12/20 06/04/20 Discontin mg tabletIndications: bedtime nightly. 18 18 ued Mood disorder, Bipolar 2 disorder lurasidone (LATUDA) 40 mg Take 1 tablet by mouth 30 tablet 2 03/12/20 06/04/20 Discontin Tab TABLETIndications: daily Take with food. 18 18 ued Mood disorder, Bipolar 2 disorder tiZANidine (ZANAFLEX) 4 Take 1 tablet by mouth 60 tablet 1 04/03/20 06/05/20 Discontin mg tabletIndications: every 6 hours as needed 18 18 ued Chronic neck pain for Muscle Spasms. traMADol (ULTRAM) 50 mg Take 1 tablet by mouth 60 tablet 0 04/03/20 05/03/20 Discontin tabletIndications: every 8 hours as needed 18 18 ued Foraminal stenosis of for Pain. lumbar region traMADol (ULTRAM) 50 mg Take 1 tablet by mouth 30 tablet 0 05/03/20 05/25/20 Discontin tabletIndications: every 8 hours as needed 18 18 ued Foraminal stenosis of for Pain. lumbar region traMADol (ULTRAM) 50 mg Take 1 tablet by mouth 30 tablet 0 05/29/20 06/28/20 Discontin tabletIndications: every 8 hours as needed 18 18 ued Foraminal stenosis of for Pain. lumbar region hydrOXYzine (ATARAX) 50 Take 1 tablet by mouth 3 90 tablet 2 06/04/20 08/22/20 Discontin mg tabletIndications: times daily. 18 18 ued Mood disorder methocarbamol Take 1 tablet by mouth 4 60 tablet 1 06/05/20 06/19/20 Discontin (ROBAXIN-750) 750 mg times daily as needed for 18 18 ued tabletIndications: Neck Pain. pain, Chronic midline low back pain without sciatica traMADol (ULTRAM) 50 mg Take 1 tablet by mouth 30 tablet 0 06/29/20 08/01/20 Discontin tabletIndications: every 8 hours as needed 18 18 ued Foraminal stenosis of for Pain. lumbar region Active Problems Problem Noted Date Former smoker- quit 2010 - pk per day for 38 yrs 08/19/2015 History of cervical cancer- s/p chemo /radiation - 201008/19/2015 HTN (hypertension) 08/19/2015 Loss of weight- since jul 2014 08/19/2015 Bipolar 2 disorder- psychiatry on /up- " I go into rages - manic for 2-3 08/19/2015 days then come down for 2-3 days then manic " every 2-3 days cycles bipolar Hot flash, menopausal 08/01/2014 Ankle pain, left 03/19/2013 Narcotic addiction 12/18/2012 Overview: Seen in [facility] clinic with symptoms of narcotic withdrawal after having used 90 hydrocodone tablets in 10 days. Pt agreed to verbal contract for codone taper and refill provided. Will continue to monitor. All other prescriptions for narcotics in [facility] cancelled. Osteoarthritis of lumbar spine 08/13/2012 Acute pancreatitis- past etoh abuse quit 2009 - alcohol 20 yrs binge 06/02/2011 drinking COPD (chronic obstructive pulmonary disease);former smoker GERD (gastroesophageal reflux disease) Coronary artery disease s/p chemo had [place] Degenerative disc disease Encounters Date Type Specialty Care Team Description 08/24/2018 Refill Psychiatry Oliver Nascimento MD Mood disorder; Bipolar 2 disorder 08/24/2018 Pharmacy Visit 08/22/2018 Refill Psychiatry Oliver Nascimento MD Mood disorder 08/22/2018 Refill Psychiatry Porfirio Gomez MD Mood disorder 08/22/2018 Pharmacy Visit 08/21/2018 Pharmacy Visit 08/03/2018 Pharmacy Visit 08/02/2018 Pharmacy Visit 08/02/2018 Pharmacy Visit 08/01/2018 Pharmacy Visit 08/01/2018 Refill [facility] Ziyad Ann MD Foraminal stenosis of lumbar region 07/20/2018 Office Visit Psychology Jenni Lopez Mood disorder in conditions classified elsewhere (Primary Dx); Grief 07/20/2018 Pharmacy Visit 07/12/2018 Pharmacy Visit 07/09/2018 Refill [facility] Ziyad Ann MD Abdominal pain, epigastric; Essential hypertension, benign 07/03/2018 Pharmacy Visit 06/29/2018 Pharmacy Visit 06/28/2018 Refill [facility] Ziyad Ann MD Foraminal stenosis of lumbar region 06/19/2018 Pharmacy Visit 06/19/2018 Orders Only Ziayd Mckeon MD Neck pain; Chronic midline low back pain without sciatica 06/18/2018 Telephone Ama Poon RN Other (returning patient call) 06/15/2018 Pharmacy Visit 06/12/2018 Pharmacy Visit 06/11/2018 Refill [facility] Ziyad Ann MD Other emphysema 06/11/2018 Pharmacy Visit 06/05/2018 Office Visit [facility] Ziyad Ann MD Dysphagia, unspecified type (Primary Dx); Polyp of colon, unspecified part of colon, unspecified type; Other emphysema; Gastroesophageal reflux disease without esophagitis; Coronary artery disease due to lipid rich plaque; Neck pain; Chronic midline low back pain without sciatica 06/05/2018 Pharmacy Visit 06/04/2018 Office Visit Psychiatry Oliver Nascimento MD TRAN (generalized anxiety disorder) (Primary Dx); Mood disorder; Current severe episode of major depressive disorder without psychotic features without prior episode; Routine lab draw 06/04/2018 Pharmacy Visit 06/01/2018 Pharmacy Visit 05/30/2018 Pharmacy Visit 05/29/2018 Pharmacy Visit 05/25/2018 Refill [facility] Ziyad Ann MD Foraminal stenosis of lumbar region 05/25/2018 Pharmacy Visit 05/17/2018 Pharmacy Visit 05/14/2018 Pharmacy Visit 05/08/2018 Pharmacy Visit 05/07/2018 Pharmacy Visit 05/04/2018 Pharmacy Visit 05/03/2018 Refill [facility] Ziyad Ann MD Foraminal stenosis of lumbar region 04/17/2018 Pharmacy Visit 04/10/2018 Pharmacy Visit 04/10/2018 Pharmacy Visit 04/06/2018 Pharmacy Visit 04/03/2018 Pharmacy Visit 04/03/2018 Refill [facility] Ziyad Ann MD Chronic neck pain; Foraminal stenosis of lumbar region 03/20/2018 Ancillary Radiology Ziyad Burns MD Procedure 03/16/2018 Pharmacy Visit 03/15/2018 Pharmacy Visit 03/14/2018 Pharmacy Visit 03/14/2018 Pharmacy Visit 03/13/2018 Pharmacy Visit 03/12/2018 Office Visit Psychiatry Oliver Nascimento MD Mood disorder; Bipolar 2 disorder 03/12/2018 Pharmacy Visit 03/12/2018 Pharmacy Visit 03/08/2018 Pharmacy Visit 03/08/2018 Pharmacy Visit 03/07/2018 Pharmacy Visit 03/07/2018 Orders Only [facility] Ziyad Ann MD Chronic neck pain 03/06/2018 Office Visit [facility] Ziyad Ann MD Essential hypertension (Primary Dx); Chronic neck pain; Other emphysema; Gastroesophageal reflux disease without esophagitis; Allergic rhinitis, unspecified seasonality, unspecified trigger; Hyperlipidemia, unspecified hyperlipidemia type; Preventative health care; Polyp of colon, unspecified part of colon, unspecified type 03/06/2018 Refill [facility] Ziyad Ann MD Chronic neck pain 03/06/2018 Pharmacy Visit 03/02/2018 Pharmacy Visit 02/28/2018 Pharmacy Visit 02/28/2018 Pharmacy Visit 02/28/2018 Refill [facility] Ziyad Ann MD Foraminal stenosis of lumbar region 02/16/2018 Pharmacy Visit 02/14/2018 Office Visit Neurosurgery Bola Soler MD Chronic neck pain Jose Camargo ResidentMD (Primary Dx) 02/14/2018 Pharmacy Visit 02/13/2018 Pharmacy Visit 02/01/2018 Pharmacy Visit 01/29/2018 Pharmacy Visit 01/29/2018 Pharmacy Visit 01/29/2018 Refill [facility] Ziyad Ann MD Foraminal stenosis of lumbar region 01/26/2018 Pharmacy Visit 01/24/2018 Pharmacy Visit 01/12/2018 Pharmacy Visit 01/12/2018 Pharmacy Visit 01/02/2018 Pharmacy Visit 01/01/2018 Office Visit [facility] Ziyad Ann MD Allergic rhinitis, unspecified seasonality, unspecified trigger (Primary Dx); Other emphysema; Gastroesophageal reflux disease without esophagitis; Essential hypertension; Essential hypertension, benign; Osteoarthritis of lumbar spine, unspecified spinal osteoarthritis complication status; Abdominal pain, epigastric; Foraminal stenosis of lumbar region; Acute otitis externa of right ear, unspecified type 01/01/2018 Pharmacy Visit 12/29/2017 Office Visit Ent-Otolaryngology Salome Orona MD Sore in nostril (Primary CatarinaBrii figueroa MD Dx) 12/19/2017 Pharmacy Visit 12/18/2017 Office Visit Psychiatry Oliver Nascimento MD Bipolar 2 disorder (Primary Dx); Mood disorder 12/08/2017 Pharmacy Visit 12/04/2017 Pharmacy Visit 12/04/2017 Pharmacy Visit 11/27/2017 Pharmacy Visit 11/22/2017 Pharmacy Visit 11/22/2017 Pharmacy Visit 11/16/2017 Office Visit Psychology Oliver Nascimento MD Mood disorder in [facility] conditions classified elsewhere (Primary Dx) 11/10/2017 Pharmacy Visit 11/08/2017 Pharmacy Visit 11/06/2017 Office Visit Oncology Toney Liu MD Malignant neoplasm of [place], [place], cervix, unspecified site ResidentMD (Primary Dx); History of cervical cancer- s/p chemo /radiation - 201011/06/2017 Pharmacy Visit 10/30/2017 Office Visit Ziyad Mckeon MD Cervical stenosis of spinal canal (Primary Dx); Foraminal stenosis of cervical region; Foraminal stenosis of lumbar region; Benign tumor of nares; Hyperlipidemia, unspecified hyperlipidemia type 10/30/2017 Pharmacy Visit 10/23/2017 Pharmacy Visit 10/16/2017 Pharmacy Visit 10/13/2017 Pharmacy Visit 10/12/2017 Orders Only Ziyad Mckeon MD Osteoarthritis of lumbar spine, unspecified spinal osteoarthritis complication status (Primary Dx) 10/06/2017 Pharmacy Visit 10/06/2017 Pharmacy Visit 10/06/2017 Pharmacy Visit 10/03/2017 Pharmacy Visit 10/02/2017 Office Visit Psychiatry Oliver Nascimento MD Mood disorder (Primary Dx); Bipolar 2 disorder 10/02/2017 Pharmacy Visit 09/29/2017 Pharmacy Visit 09/28/2017 Refill Ziyad Mckeon MD Abdominal pain, epigastric 09/28/2017 Pharmacy Visit 09/27/2017 Pharmacy Visit 09/22/2017 Pharmacy Visit 09/20/2017 Pharmacy Visit 09/08/2017 Pharmacy Visit 09/07/2017 Office Visit Ziyad Mckeon MD Foraminal stenosis of Onelia Miller lumbar region (Primary Dx); Needs flu shot; Essential hypertension, benign; Allergic rhinitis, unspecified chronicity, unspecified seasonality, unspecified trigger; Gastroesophageal reflux disease with esophagitis; Foraminal stenosis of cervical region; Cervical stenosis of spinal canal; Chronic midline low back pain with sciatica, sciatica laterality unspecified 09/07/2017 Refill [facility] Gastroesophageal reflux disease with esophagitis 09/07/2017 Pharmacy Visit 08/30/2017 Pharmacy Visit 08/30/2017 Pharmacy Visit 08/25/2017 Pharmacy Visit after 08/23/2017 Immunizations Name Dates Previously Given Next Due Influenza Vaccine 08/17/2016, 07/09/2015, 08/14/2014, 07/16/2013, 08/27/2012 Influenza Vaccine, 09/07/2017 Seasonal, Injectable PPV 23 Pneumococcal 06/02/2011 Polysaccaride Pcv-13 Pneumococcal 11/03/2015 Conjugate Tdap Tetanus, diphtheria, 03/11/2013 03/11/2023 acellular pertussis Vaccine Family History Medical History Relation Name Comments Cancer Maternal Breast and ovarian cancer in 30s Grandmother Diabetes Maternal Grandmother Hypertension Maternal Grandmother Cancer Mother Breast and ovarian cancer in 30s Diabetes Mother Hypertension Mother Relation Name Status Comments Brother Alive Daughter Alive Father Alive Maternal Grandfather Maternal Grandmother Mother Alive Paternal Grandfather Paternal Grandmother Son Alive Social History Tobacco Use Types Packs/Day Years Used Date Former Smoker Cigarettes 0.5 30 Quit: 03/14/2013 Smokeless Tobacco: Never Used Tobacco Cessation: Counseling Given: No Comments: 2 cigarettes per day Alcohol Use Drinks/Week oz/Week Comments No 0 Standard 0.0 drinks or equivalent Sex Assigned at Date Recorded Not on file Last Filed Vital Signs Vital Sign Reading Time Taken Blood Pressure 116/69 06/05/2018 2:47 PM CDT Pulse 65 06/05/2018 2:47 PM CDT Temperature 37 C (98.6 F) 06/05/2018 2:47 PM CDT Respiratory Rate 18 06/05/2018 2:47 PM CDT Oxygen Saturation - - Inhaled Oxygen - - Concentration Weight 75.8 kg (167 lb 3.2 oz) 06/05/2018 2:47 PM CDT Height 167.6 cm (5' 6") 06/05/2018 2:47 PM CDT Body Mass Index 26.99 06/05/2018 2:47 PM CDT Plan of Treatment Date Type Specialty Care Team Description 08/24/2018 Office Visit Psychology Jenni Lopez Arrived [address] [place] [address] [phone] 08/27/2018 Office Visit Psychiatry Oliver Nascimento MD [address] [place] [address] [phone] 09/02/2018 Orders Only [facility] Ziyad Burns MD Polyp of colon, [address] [place] [address] unspecified part of [id number] colon, [place] [address] [phone] 09/03/2018 Office Visit [facility] Ziyad Burns MD medication refill [address] [place] [address] [id number] [place], [place] [id number] Health Maintenance Due Date Last Done Comments Colonoscopy 5yr 04/29/2018 04/29/2013 CORONARY ARTERY DISEASE 03/02/2019 03/02/2018, 04/20/2017, 08/17/2016, AGE 18 AND UP Additional history exists Breast Cancer Scrn 03/20/2019 03/20/2018, 04/07/2017, 03/29/2016, (Yearly) Additional history exists Cervical Cancer Scrn (3 02/14/2021 02/14/2018, 11/06/2017, 08/01/2014, Yrs) Additional history exists Goals Patient Goal Type Goal Recent Progress Patient-Stat Author ed? Lifestyle Eat Healthy No Valeria Iyer Procedures Procedure Name Priority Date/Time Associated Diagnosis Comments MAMMOGRAM BILAT SCREEN Routine 03/20/2018 Preventative health care Results for this DIGITAL 1:36 PM CDT procedure are in the results section. HEPATITIS PANEL Routine 03/02/2018 Essential hypertension Results for this 8:17 AM CDT procedure are in the results section. HIV-1/HIV-2 ROUTINE Routine 03/02/2018 Essential hypertension Results for this SCREENING 8:17 AM CDT procedure are in the results section. LIVER PROFILE Routine 03/02/2018 Essential hypertension Results for this 8:17 AM CDT procedure are in the results section. UREA NITROGEN/CREA Routine 03/02/2018 Essential hypertension Results for this 8:17 AM CDT procedure are in the results section. LIPID PROFILE Routine 03/02/2018 Essential hypertension Results for this 8:17 AM CDT procedure are in the results section. GLUCOSE Routine 03/02/2018 Essential hypertension Results for this 8:17 AM CDT procedure are in the results section. CBC/DIFF Routine 03/02/2018 Essential hypertension Results for this 8:17 AM CDT procedure are in the results section. ELECTROLYTES Routine 03/02/2018 Essential hypertension Results for this 8:17 AM CDT procedure are in the results section. VALPROIC ACID Routine 12/18/2017 Mood disorder Results for this 2:00 PM CDT Bipolar 2 disorder procedure are in the results section. HPV HIGH-RISK Routine 11/06/2017 Malignant neoplasm of Results for this 3:35 PM LABORATORY MECHANICAL TECHNICIAN cervix, unspecified site procedure are in the results section. [facility] CYTOLOGY Routine 11/06/2017 Results for this 12:00 AM LABORATORY MECHANICAL TECHNICIAN procedure are in the results section. URINE DRUG SCREEN Routine 09/07/2017 Chronic midline low back Results for this 2:46 PM LABORATORY MECHANICAL TECHNICIAN pain with sciatica, procedure are in the sciatica laterality results section. unspecified after 08/23/2017 Results * MAMMOGRAM BILAT SCREEN DIGITAL (03/20/2018 1:36 PM) Impressions Performed At IMPRESSION: BENIGN SMS There is no mammographic evidence of malignancy. A 1 year screening mammogram is recommended. This document has been electronically signed. Susan sesay/cathy:03/20/2018 13:39:20 Supervisor [employer]: Jb Lazaro Sr. Holistic Nutritionist, [facility] letter sent: Mammography Normal Mammogram BI-RADS: 2 Benign G0202 Z85.3 Narrative Performed At #[id number] - MAMMOGRAM BILAT SCREEN DIGITAL SMS BILATERAL DIGITAL SCREENING MAMMOGRAM WITH CAD: 03/20/2018 CLINICAL: Screening for malignancy. Comparison is made to exams dated:04/07/2017 [facility], 03/29/2016 [facility], 01/30/2015, 12/10/2013, and 10/22/2012 [facility]. There are scattered fibroglandular elements in both breasts that could obscure a lesion on mammography. Current study was also evaluated with a Computer Aided Detection (CAD) system. There is a benign intramammary node in the left breast. No significant masses, calcifications, or other findings are seen in either breast. There has been no significant interval change. Procedure Note Interface, Rad/Mammog In - 03/20/2018 4:02 PM CDT #[id number] - MAMMOGRAM BILAT SCREEN DIGITAL BILATERAL DIGITAL SCREENING MAMMOGRAM WITH CAD: 03/20/2018 CLINICAL: Screening for malignancy. Comparison is made to exams dated: 04/07/2017 [facility], 03/29/2016 [facility], 01/30/2015, 12/10/2013, and 10/22/2012 [facility]. There are scattered fibroglandular elements in both [...] This document has been electronically signed. Susan sesay/cathy:03/20/2018 13:39:20 Supervisor [employer]: Jb Lazaro Sr. Holistic Nutritionist, [facility] letter sent: Mammography Normal Mammogram BI-RADS: 2 Benign G0202 Z85.3 Performing Organization Address City/[facility] Phone Number SMS * HIV-1/HIV-2 ROUTINE SCREENING (03/02/2018 8:17 AM) HIV-1/HIV-2 Negative NEG BT MAIN-STATION 3 Performing Organization Address [place]/[facility] Number MISYS BT MAIN-STATION 3 * ELECTROLYTES (03/02/2018 8:17 AM) Sodium 145 136 - 145 mmol/L BT MAIN-STATION 1 Potassium 4.2 3.5 - 5.1 mmol/L BT MAIN-STATION 1 Chloride 107 98 - 107 mmol/L BT MAIN-STATION 1 CO2 28 21 - 31 mmol/L BT MAIN-STATION 1 Anion Gap 10 BT MAIN-STATION 1 Specimen Blood Performing Organization Address [facility] Phone Number MISYS MAIN-STATION 1 * LIVER PROFILE (03/02/2018 8:17 AM) T Protein 6.5 6.0 - 8.3 g/dL BT MAIN-STATION 1 Albumin 4.5 3.7 - 5.3 g/dL BT MAIN-STATION 1 T Bilirubin 0.4 0.2 - 1.2 mg/dL BT MAIN-STATION 1 Alk Phos 60 34 - 104 U/L BT MAIN-STATION 1 AST 11 (L) 13 - 39 U/L BT MAIN-STATION 1 ALT 10 7 - 52 U/L BT MAIN-STATION 1 D Bilirubin 0.1 0.0 - 0.2 mg/dL BT MAIN-STATION 1 Specimen Blood Performing Organization Address [facility] Phone Number MISYS MAIN-STATION 1 * LIPID PROFILE (03/02/2018 8:17 AM) Cholesterol 261 mg/dL BT MAIN-STATION 1 Comment: REFERENCE RANGE: Desirable: <200 mg/dL Borderline: 200-240 mg/dL High Risk: >240 mg/dL Triglyceride 190 (H) <150 mg/dL BT MAIN-STATION 1 Comment: REFERENCE RANGE: Normal: <150 mg/dL Borderline High: 150-199 mg/dL High: 200-499 mg/dL Very High: >yy=179 mg/dL HDL 51 mg/dL BT MAIN-STATION 1 Comment: Increased CHD risk: <40 mg/dL Decreased CHD risk: >60 mg/dL LDL 172 mg/dL BT MAIN-STATION 1 Comment: REFERENCE RANGE: Optimal: <100 mg/dL Near Optimal: 100-129 mg/dL Borderline High: 130-159 mg/dL High: 160-189 mg/dL Very High: >to=557 mg/dL Specimen Blood Performing Organization Address [facility] Phone Number MISYS MAIN-STATION 1 * HEPATITIS PANEL (03/02/2018 8:17 AM) HCV IgG Negative NEG BT MAIN-STATION 3 HBsAg Negative NEG BT MAIN-STATION 3 HAV, IgM Negative NEG BT MAIN-STATION 3 HBcAb, IgM Negative NEG BT MAIN-STATION 3 Specimen Blood Performing Organization Address [facility] Phone Number MISYS MAIN-STATION 3 * GLUCOSE (03/02/2018 8:17 AM) Glucose 98 70 - 110 mg/dL BT MAIN-STATION 1 Specimen Blood Performing Organization Address [facility] Phone Number MISYS BT MAIN-STATION 1 * CBC/DIFF (03/02/2018 8:17 AM) WBC 5.2 4.5 - 11.0 K/uL BT MAIN-STATION 2 RBC 4.40 4.20 - 5.40 M/uL BT MAIN-STATION 2 Hemoglobin 13.4 12.0 - 16.0 g/dL BT MAIN-STATION 2 Hematocrit 39.6 37.0 - 47.0 % BT MAIN-STATION 2 MCV 90 82 - 92 fL BT MAIN-STATION 2 MCH 30.5 27.0 - 32.0 pg BT MAIN-STATION 2 MCHC 33.8 32.0 - 36.0 g/dL BT MAIN-STATION 2 RDW 42.5 36.4 - 46.3 fL BT MAIN-STATION 2 Platelet 329 150 - 400 K/uL BT MAIN-STATION 2 Mean Platelet Volume 9.6 9.4 - 12.4 fL BT MAIN-STATION 2 Percent NRBC 0.0 BT MAIN-STATION 2 Absolute NRBC 0.00 BT MAIN-STATION 2 Neutrophil 63.7 34.0 - 70.0 % BT MAIN-STATION 2 Lymphocyte 27.9 20.0 - 50.0 % BT MAIN-STATION 2 Monocyte 6.5 5.0 - 12.0 % BT MAIN-STATION 2 Eosinophil 1.1 0.7 - 5.0 % BT MAIN-STATION 2 Basophil 0.4 0.1 - 1.2 % BT MAIN-STATION 2 Pct Immat Gran 0.4 0.0 - 0.5 BT MAIN-STATION 2 Neutrophil, Abs 3.33 1.56 - 6.13 K/uL BT MAIN-STATION 2 Lymphocyte, Abs 1.46 1.18 - 3.74 K/uL BT MAIN-STATION 2 Monocyte, Abs 0.34 0.24 - 0.36 K/uL BT MAIN-STATION 2 Eosinophil, Abs 0.06 0.04 - 0.36 K/uL BT MAIN-STATION 2 Basophil, Abs 0.02 0.01 - 0.08 K/uL BT MAIN-STATION 2 Absol Immat Gran 0.02 0.00 - 0.03 K/uL BT MAIN-STATION 2 Specimen Blood Performing Organization Address [facility] Phone Number MARTÍNEZ BT MAIN-STATION 2 * UREA NITROGEN/CREA (03/02/2018 8:17 AM) Urea Nitrogen 12 7 - 25 mg/dL BT MAIN-STATION 1 Creatinine 0.70 0.6 - 1.2 mg/dL BT MAIN-STATION 1 GFR, Estimated >60 mL/min/1.73 m2 BT MAIN-STATION 1 GFR, Estim, Afr-Am >60 mL/min/1.73 m2 BT MAIN-STATION 1 Specimen Other (Specify in Comments) Performing Organization Address City/[facility] Phone Number MARTÍNEZ MAIN-STATION 1 * VALPROIC ACID (12/18/2017 2:00 PM) Valproic Acid 57.7Comment: Test performed on 50 - 100 ug/mL MAIN-STATION 3 [id number] using EMIT Immunoassay Specimen Blood Performing Organization Address [facility] Phone Number MARTÍNEZ MAIN-STATION 3 * HPV HIGH-RISK (11/06/2017 3:35 PM) HPV High Risk Negative NEG DIAGNOSTIC Comment: IMMUNOLOGY The APTIMA HPV Assay is an in vitro nucleic acid amplification test for the qualitative detection of E6/E7 viral messenger RNA (mRNA) from 14 high-risk types of human papillomavirus (HPV) in cervical specimens. The high-risk HPV types detected by the assay include: 16,18,31,33,35,39,45,51,52,56, 58,59,66, and 68. CoPath Spec Number [id number] MOLECULAR PATHOLOGY Performing Organization Address [facility] Phone Number MARTÍNEZ DIAGNOSTIC IMMUNOLOGY MOLECULAR PATHOLOGY * [facility] CYTOLOGY (11/06/2017) [facility] Cytology (note) MISYS Name JILLIAN LUNDBERG Date of 1960 Hospital Number [id number] Location [place] [facility] CYTOPATHOLOGY Collected:11/06/2017 00:00 Received: 11/07/2017 11:02 [...] analyzed by the automated [employer]inPrep Imaging System, [employer], [place], [place]. Performing Organization Address [facility] Phone Number MARTÍNEZ * URINE DRUG SCREEN (09/07/2017 2:46 PM) Amphetamine Negative NEG BT MAIN-STATION 3 Comment: Calibrated Standard: D-Methamphetamine Positive if urine level >lo=6826 ng/mL Barbiturate Negative NEG BT MAIN-STATION 3 Comment: Calibrated Standard: Secobarbital Positive if urine level is >vd=923 ng/mL Benzodiazepine Negative NEG BT MAIN-STATION 3 Comment: Calibrated Standard: Lormethazepam Positive if urine level is >rq=112 ng/mL Cannabinoid Positive (A) NEG BT MAIN-STATION 3 Comment: Calibrated Standard: 11 nor-delta(9)-THC carboxylic a Positive if urine level >or=50 Cocaine Negative NEG BT MAIN-STATION 3 Comment: Calibrated Standard: Benzoylecgonine Positive if urine level >ep=573 Opiate, Ur Negative NEG BT MAIN-STATION 3 Comment: Calibrated Standard: Morphine Positive if urine level >lt=820 PCP Negative NEG BT MAIN-STATION 3 Comment: Calibrated Standard: Phencyclidine Positive if urine level >or=25 Urine Toxicology Screen results are to be used only for Medical purposes. Specimen Urine Performing Organization Address [facility] Phone Number MARTÍNEZ BT MAIN-STATION 3 after 08/23/2017
[2018-08-31] MEDS ORDERED: DEXAMETHASONE SOD PHOS 10 MG/1 ML VIAL IM ONE (15:15)
[2018-08-31] MEDS ORDERED: KETOROLAC TROMETHAMINE 60 MG/2 ML VIAL IM ONE (15:30)
--- NOTE | 2018-08-31 16:19 | Diagnostic Imaging Report ---
Exam: KUB-2 views. Comparison: <None.> Findings: Nonobstructive bowel gas pattern. No evidence of free intraperitoneal air. There is moderate amount of stool in the colon. Status post cholecystectomy. There is no evidence of calcification overlying the expected location of the kidneys or ureters. No acute bony abnormality. Impression: No acute radiographic abnormality. Signed by: Dr. Ramona Spencer MD on 08/31/2018 4:16 PM
--- NOTE | 2018-08-31 16:22 | Diagnostic Imaging Report ---
EXAM: lumbar spine, 2 view, AP and supine lateral DATE: 08/31/2018. INDICATION: Pain COMPARISON: None FINDINGS: BONES: The alignment is within normal limits. No acute displaced fractures. Vertebral body heights are preserved. DISCS AND JOINTS: Mild degenerative disc and facet degenerative changes, most pronounced at L4-5 and L5-S1. SOFT TISSUES: Surgical clips project over the pre-vertebral soft tissues. Atherosclerotic calcifications are noted. IMPRESSION: No acute radiographic abnormality. Mild degenerative disc and facet degenerative changes of the lower lumbar spine. Signed by: Dr. Ramona Spencer MD on 08/31/2018 4:19 PM
[2018-08-31] MEDS ORDERED: KETOROLAC TROME10 MG PO (16:36)
[2018-08-31] MEDS ORDERED: ULTRAM 50MG50 MG PO (16:36)
== END 2018-08-31 17:13 | disposition home or self-care (01) ==
LOC: ER 14:31
DX: S39.012A Strain of muscle, fascia and tendon of lower back, initial encounter (principal); S46.911A Strain of unspecified muscle, fascia and tendon at shoulder and upper arm level, right arm, initial encounter; X50.9XXA Other and unspecified overexertion or strenuous movements or postures, initial encounter; Y93.K1 Activity, walking an animal; Y92.009 Unspecified place in unspecified non-institutional (private) residence as the place of occurrence of the external cause; M47.896 Other spondylosis, lumbar region; K44.9 Diaphragmatic hernia without obstruction or gangrene; I10 Essential (primary) hypertension; Z88.6 Allergy status to analgesic agent; Z88.0 Allergy status to penicillin
CPT/HCPCS: 72100; 74018; 99283; J1100; J1885